=== PATIENT | male | born 1955 | race Caucasian/White ===

== ENCOUNTER 2018-01-24 09:32 | Day surgery (SDC) | payer BC, OTHER ==
[~2018-01-24 09:32] MED LIST: Acetaminophen TAB* 325 MG PO PRN; Buffered Lidocaine 0.9% SYRIN* 5 ML/SYR SYRINGE INTRADERM ONE
[2018-01-24] MEDS ORDERED: Midazolam* 1 MG/ML 2 ML VIAL (2 MG) ONE ×2 (10:58→11:33)
[2018-01-24] MEDS ORDERED: fentaNYL* 50 MCG/ML 2 ML VIAL (100 MCG VIAL) ONE (11:32)
[2018-01-24 11:56] VITALS: BP 109/73
[2018-01-24] MEDS ORDERED: Lidocaine 2% EPI 1:200000 MPF*10-20 ML VIAL ONE (12:35)
[2018-01-24] MEDS ORDERED: acetaZOLAMIDE TAB* 250 MG ONE (12:35)
[2018-01-24] MEDS ORDERED: Cyclopentolate 1% OPTH.SOL* 2 ML BTL ONE (12:35)
[2018-01-24] MEDS ORDERED: Ketorolac 0.5% OPHTH (NF) 0.5 % 5 ML BTL ONE (12:35)
[2018-01-24] MEDS ORDERED: Povidone Iodine 5% OPTH* 30 ML BTL ONE (12:35)
[2018-01-24] MEDS ORDERED: Lidocaine 1%* 5 ML VIAL ONE (12:35)
[2018-01-24] MEDS ORDERED: Neomycin/Polymy/Dex OPTH.SUSP* MAXITROL 0.1% 5 ML ONE (12:35)
[2018-01-24] MEDS ORDERED: Phenylephrine 2.5% OPTH.SOL* 2 ML BTL ONE (12:35)
[2018-01-24] MEDS ORDERED: Proparacaine 0.5% OPHTH.SOL* 15 ML BTL ONE (12:35)
--- NOTE | 2018-01-24 15:18 | OP ---
DATE OF OPERATION: 01/24/2018 - [facility] DATE OF : 1955. SURGEON: Zac Shaver M.D. PREOPERATIVE DIAGNOSIS: Cataract right eye. POSTOPERATIVE DIAGNOSIS: Cataract right eye. OPERATIVE PROCEDURE: Extracapsular cataract extraction with intraocular lens implant right eye. DESCRIPTION OF PROCEDURE: The patient was brought to the operating room after being given 1/2% Alcaine with epinephrine drops in the preoperative area. The eye was prepped and draped in the usual sterile fashion. Sterile drape and eyelid speculum were placed. Again, topical 1/2% Alcaine with epinephrine was given. A paracentesis incision was made at the 9 o'clock position with the No.75 blade. Clear cornea incision 2.2 x 2.2-mm was created at the 12 o'clock position starting at the anterior limbus using the 2.2-mm keratome. The anterior chamber was irrigated with 0.4 mL of 1% non-preservative intracameral lidocaine and filled with DisCoVisc. A capsulorrhexis was completed using the cystotome and the Utrata forceps. Hydrodissection was performed with balanced salt solution. The lens nucleus was removed with the Phacoemulsification handpiece without incident. Cortex was removed with the irrigation-aspiration handpiece. The capsular bag was re-inflated using DisCoVisc and an [id number] implant was inserted with the shooter, oriented to the 12 degree meridian horizontal reference marquez made with the patient in the seated position in the preoperative area. The irrigation-aspiration handpiece was used to remove all residual DisCoVisc. The eye was refilled with balanced salt solution and the wound checked and found to be watertight. Topical Maxitrol drops were given. [id number]/[facility] #: [id number] [facility]ALTH SYSTEMSheyla
== END 2018-01-24 12:02 | disposition home or self-care (01) ==
LOC: OREAST 09:32
PROVIDERS: ATTEND Specialist
DX: H25.811 Combined forms of age-related cataract, right eye (principal); H35.413 Lattice degeneration of retina, bilateral; J30.2 Other seasonal allergic rhinitis
CPT/HCPCS: A9270-GY; J2250; J3010; V2788

== ENCOUNTER 2018-01-31 07:01 | Day surgery (SDC) | payer BC, OTHER ==
[2018-01-31] MEDS ORDERED: Lidocaine 1%* 5 ML VIAL ONE (07:49)
[2018-01-31] MEDS ORDERED: Ketorolac 0.5% OPHTH (NF) 0.5 % 5 ML BTL ONE (07:49)
[2018-01-31] MEDS ORDERED: Proparacaine 0.5% OPHTH.SOL* 15 ML BTL ONE (07:49)
[2018-01-31] MEDS ORDERED: Lidocaine 2% EPI 1:200000 MPF*10-20 ML VIAL ONE (07:49)
[2018-01-31] MEDS ORDERED: acetaZOLAMIDE TAB* 250 MG ONE (07:49)
[2018-01-31] MEDS ORDERED: Neomycin/Polymy/Dex OPTH.SUSP* MAXITROL 0.1% 5 ML ONE (07:49)
[2018-01-31] MEDS ORDERED: Phenylephrine 2.5% OPTH.SOL* 2 ML BTL ONE (07:49)
[2018-01-31] MEDS ORDERED: Povidone Iodine 5% OPTH* 30 ML BTL ONE (07:49)
[2018-01-31] MEDS ORDERED: Cyclopentolate 1% OPTH.SOL* 2 ML BTL ONE (07:49)
[2018-01-31] MEDS ORDERED: Midazolam* 1 MG/ML 2 ML VIAL (2 MG) ONE ×2 (09:39→10:02)
[2018-01-31 10:40] VITALS: BP 110/70
--- NOTE | 2018-01-31 14:33 | OP ---
DATE OF OPERATION: 01/31/18 - [facility] DATE OF : [birth year]. SURGEON: Zac Shaver M.D. PREOPERATIVE DIAGNOSIS: Cataract, left eye. POSTOPERATIVE DIAGNOSIS: Cataract, left eye. OPERATIVE PROCEDURE: Extracapsular cataract extraction with intraocular lens implant left eye. DESCRIPTION OF PROCEDURE: The patient was brought to the operating room after being given 1/2% Alcaine with epinephrine drops in the preoperative area. The eye was prepped and draped in the usual sterile fashion. Sterile drape and eyelid speculum were placed. Again, topical 1/2% Alcaine with epinephrine was given. A paracentesis incision was made at the 3 o'clock position with the No.75 blade. Clear cornea incision 2.2 x 2.2-mm was created at the 6 o'clock position starting at the anterior limbus using the 2.2-mm keratome. The anterior chamber was irrigated with 0.4 mL of 1% non-preservative intracameral lidocaine and filled with DisCoVisc. A capsulorrhexis was completed using the cystotome and the Utrata forceps. Hydrodissection was performed with balanced salt solution. The lens nucleus was removed with the Phacoemulsification handpiece without incident. Cortex was removed with the irrigation-aspiration handpiece. The capsular bag was re-inflated using DisCoVisc and an [id number] implant was inserted with the shooter, and oriented to the 161-degree of meridian. Horizontal reference marquez were made with the patient in a seated position in the preoperative area. The irrigation- aspiration handpiece was used to remove all residual DisCoVisc. The eye was refilled with balanced salt solution and the wound checked and found to be watertight. Topical Maxitrol drops were given. Of note, the pupil was very small, so a Malyugin ring was used to dilate the pupil prior to capsulorrhexis and removed after insertion of the lens, indication for complex cataract surgery. Pupil abnormalities were requiring pupil dilation device. [id number]/[facility] #: [id number] MTDD
== END 2018-01-31 10:26 | disposition home or self-care (01) ==
LOC: OREAST 07:01
PROVIDERS: ATTEND Specialist
DX: H25.812 Combined forms of age-related cataract, left eye (principal); H21.562 Pupillary abnormality, left eye; H35.413 Lattice degeneration of retina, bilateral
CPT/HCPCS: A9270-GY; J2250; V2788

== ENCOUNTER 2019-02-06 21:57 | Emergency (ER) | payer BC ==
[2019-02-06 22:13] LABS: Urine Appearance Cloudy; Urine Bilirubin Negative (Negative); Urine Blood Negative (Negative); Urine Color Yellow; Urine Glucose 3+(>=500 mg/dL) (Negative); Urine Ketones 1+ (Negative); Urine Nitrite Negative (Negative); Urine Protein Negative (Negative); Urine Specific Gravity 1.025 (1.010-1.030); Urine Urobilinogen Negative (Negative)
--- NOTE | 2019-02-07 00:49 | ED ---
Abdominal Pain/Male - HPI Summary HPI Summary: Pt is a 63 y/o M presenting to the ED with a chief complaint of R sided flank pain. He states it began severely and suddenly at approximately 2014 on his side and has now moved down to his R-sided abd. He reports associated N/V. He denies fever, as well as any significant PMHx. - History of Current Complaint Chief Complaint: EDFlankPain Stated Complaint: ABD AND BACK PAIN PER PT Time Seen by Provider: 02/07/19 00:39 Hx Obtained From: Patient Onset/Duration: Sudden Onset, Lasting Hours, Still Present Timing: Constant, Lasting Hours Severity Initially: Severe Severity Currently: Severe Pain Intensity: 9 Pain Scale Used: 0-10 Numeric Location: Flank - R Radiates: Yes Radiates to: Other - R side Aggravating Factor(s): Nothing Alleviating Factor(s): Nothing Associated Signs And Symptoms: Positive: Nausea, Vomiting. Negative: Fever - Allergies/Home Medications Allergies/Adverse Reactions: Allergies Allergy/AdvReac Type Severity Reaction Status Date / Time No Known Allergies Allergy Verified 02/06/19 22:01 PMH/Surg Hx/FS Hx/Imm Hx Previously Healthy: Yes Cardiovascular History: Denies: Hx Hypertension, Other Cardiovascular Problems/Disorders History: Denies: Hx Kidney Stones Sensory History: Reports: Hx Cataracts - BILATERAL, Hx Contacts or Glasses - GLASSES Denies: Hx Hearing Aid Opthamlomology History: Reports: Hx Cataracts - BILATERAL, Hx Contacts or Glasses - GLASSES - Surgical History Surgery Procedure, Year, and Place: AGE 11 - APPENDECTOMY. AGE 42 VASECTOMY. KNEE ARTHROSCOPY X 2. REMOVAL OF LIPOMAS- STATES HAS HAD MULTIPLE OVER THE YEARS-OFFICE Hx Anesthesia Reactions: No Infectious Disease History: No Infectious Disease History: Denies: Traveled Outside the [place] in Last 30 Days - Social History Alcohol Use: Weekly Alcohol Amount: 12 PER WEEK Hx Substance Use: No Substance Use Type: Reports: None Hx Tobacco Use: No Smoking Status (MU): Never Smoked Tobacco Have You Smoked in the Last Year: No Review of Systems Negative: Fever Positive: Abdominal Pain, Vomiting, Nausea Positive: flank pain All Other Systems Reviewed And Are Negative: Yes Physical Exam - Summary Physical Exam Summary: Appearance: Well-appearing, Well-nourished, lying in bed comfortably Skin: Warm, dry, no obvious rash Eyes: sclera anicteric, no conjunctival pallor ENT: mucous membranes moist, pharynx appears normal Neck: Supple, nontender Respiratory: Clear to auscultation, no signs of respiratory distress Cardiovascular: Normal S1, S2. No murmurs. Normal distal pulses in tibial and radial bilaterally. Abdomen: Soft, nontender, normal active bowel sounds present Musculoskeletal: Normal, Strength/ROM Intact Neurological: A&Ox3, awake and alert, mentation is normal, speech is fluent and appropriate Psychiatric: affect is normal, does not appear anxious or depressed Triage Information Reviewed: Yes Vital Signs On Initial Exam: Initial Vitals Temp Pulse Resp BP Pulse Ox 98.1 F 48 16 134/84 100 02/06/19 21:59 02/06/19 21:59 02/06/19 21:59 02/06/19 21:59 02/06/19 21:59 Vital Signs Reviewed: Yes Diagnostics - Vital Signs Vital Signs Temp Pulse Resp BP Pulse Ox 02/06/19 21:59 98.1 F 48 16 134/84 100 - Laboratory Lab Results: Lab Results 02/06/19 Range/Units 22:05 Urine Color Yellow Urine Appearance Cloudy Urine pH 6.0 (5-9) Ur Specific [place] 1.025 (1.010-1.030) Urine Protein Negative (Negative) Urine Ketones 1+ A (Negative) Urine Blood Negative (Negative) Urine Nitrate Negative (Negative) Urine Bilirubin Negative (Negative) Urine Urobilinogen Negative (Negative) Ur Leukocyte Esterase Negative (Negative) Urine Glucose 3+(>=500 mg/dl) A (Negative) Urine Ascorbic Acid * A (Negative) Result Diagrams: 02/07/19 00:58 02/07/19 00:58 Lab Statement: Any lab studies that have been ordered have been reviewed, and results considered in the medical decision making process. - CT CT a/p CT Interpretation Completed By: Radiologist Summary of CT Findings: 1. Mildly obstructing 4 mm calculus distal third right ureter. 2. Right nephrolithiasis. 3. Bosniak type I renal cysts. No followup indicated. ED physician has reviewed this report. Abdominal Pain Male Course/Dx - Course Course Of Treatment: Pt is a 63 y/o M presenting to the ED with a chief complaint of R sided flank pain. He states it began severely and suddenly around 2014 on his side and has now moved down to his R-sided abd. He reports associated N/V. He denies fever, as well as any significant PMHx. Pt's physical exam was nml. CT a/p shows: 1. Mildly obstructing 4 mm calculus distal third right ureter. 2. Right nephrolithiasis. 3. Bosniak type I renal cysts. No followup indicated. I informed the pt of the CT results. He will be d /c'ed with dx of kidney stone. He is stable and agreeable with this plan. - Diagnoses Provider Diagnoses: Kidney stone Discharge ED - Sign-Out/Discharge Documenting (check all that apply): Patient Departure Patient Received Moderate/Deep Sedation with Procedure: No - Discharge Plan Condition: Good Disposition: HOME Prescriptions: Ondansetron ODT TAB* [Zofran 4 MG Odt TAB*] 8 mg PO Q6H PRN #12 tab.odt PRN Reason: Nausea oxyCODONE/Acetamin 5/325 MG* [Percocet 5/325 TAB*] 1 tab PO Q4H PRN #15 tab MDD 6 PRN Reason: Pain - Moderate Patient Education Materials: Kidney Stones (ED) Forms: *Gen. Provider Communication Referrals: Domingo Meredith MD [Medical Doctor] - Additional Instructions: Call Dr. Meredith's office in the morning for followup, they will likely try to get you in early next week if the stone has not passed. - Billing Disposition and Condition Condition: GOOD Disposition: Home - Attestation Statements Document Initiated by Marizol: Yes Documenting Scribe: Annalise Johnson Provider For Whom Marizol is Documenting (Include Credential): Walt Thomas MD. Scribe Attestation: Annalise Stephen, scribed for Walt Thomas MD. on 02/09/19 at 0426. Scribe Documentation Reviewed: Yes Provider Attestation: The documentation as recorded by the Annalise soni accurately reflects the service I personally performed and the decisions made by , Walt Thomas MD. Status of Scribe Document: Viewed
[2019-02-07] MEDS: Ketorolac INJ* 30 MG/ML 1 ML VIAL IV PUSH ONE (00:52)
[2019-02-07] MEDS: Ondansetron INJ* 2 MG/ML VIAL IV ONE (00:52)
[2019-02-07 01:06] LABS: ABS Lymphocytes 0.6 10^3/ul (1.0-4.8); ABS Monocytes 0.4 10^3/ul (0-0.8); ABS Neutrophils 7.1 10^3/ul (1.5-7.7); Hematocrit 36 % (42-52); Hemoglobin 12.5 g/dL (14.0-18.0); Lymphocyte % 7.1 %; Mean Corpuscular HGB Conc 34 g/dL (31-36); Mean Corpuscular Hemoglobin 32 pg (27-31); Mean Corpuscular Volume 92 fL (80-94); Mean Platelet Volume 6.7 fL (7.4-10.4); Platelet Count 197 10^3/uL (150-450); Red Blood Count 3.94 10^6 /uL (4.18-5.48); Red Cell Distribution Width 14 % (10-15); White Blood Count 8.1 10^3/uL (3.5-10.8)
[2019-02-07] MEDS: Morphine 4 MG/ML VIAL (1 ml) 4 MG/ML VIAL IV PRN (01:22)
[2019-02-07 01:23] LABS: Albumin 3.8 g/dL (3.2-5.2); Albumin/Globulin Ratio 1.5 (1-3); BUN/Creatinine Ratio 25.7 (8-20); Calcium 8.8 mg/dL (8.6-10.3); EGFR African American 64.2 (>60); EGFR Non-African American 53.1 (>60); Globulin 2.5 g/dL (2-4); Total Bilirubin 0.6 mg/dL (0.2-1.0); Total Protein 6.3 g/dL (6.4-8.9)
[2019-02-07 02:29] VITALS: BP 115/72
== END 2019-02-07 02:27 | disposition home or self-care (01) ==
LOC: ED 21:57
DX: N20.0 Calculus of kidney (principal); N28.1 Cyst of kidney, acquired; Z79.899 Other long term (current) drug therapy
CPT/HCPCS: 36415; 74176; 80053; 81003; 83605; 83690; 85025; 96374; 96375; 99282; J1885; J2270; J2405